=== PATIENT | female | born 1995 | race Hispanic/Latino ===

== ENCOUNTER 2017-08-14 09:25 | Outpatient (CLI) | payer OTHER | END 2017-08-14 09:26 | disposition home or self-care (01) | LOC: BICULT 09:25 | PROVIDERS: ATTEND Nurse Practitioner Women's Health | DX: R10.2 Pelvic and perineal pain (principal); N83.291 Other ovarian cyst, right side | CPT/HCPCS: 76856 ==

== ENCOUNTER 2018-03-21 19:43 | Emergency (ER) | payer OTHER ==
[2018-03-21] MEDS ORDERED: Lidocaine 1% w/Epinephrine 1:100K 20 ML VIAL ONE (20:12)
== END 2018-03-21 21:18 | disposition home or self-care (01) ==
LOC: ERS 19:43
DX: L02.214 Cutaneous abscess of groin (principal); J45.909 Unspecified asthma, uncomplicated; F41.9 Anxiety disorder, unspecified; F32.9 Major depressive disorder, single episode, unspecified; Z79.899 Other long term (current) drug therapy
CPT/HCPCS: 10060; J2001

== ENCOUNTER 2018-09-17 03:53 | Emergency (ER) | payer OTHER ==
[2018-09-17] MEDS ORDERED: Ondansetron PF 4 MG/2 ML Vial ONE (04:17)
[2018-09-17] MEDS ORDERED: Morphine 4 MG/ML VIAL ONE (04:17)
[2018-09-17 04:42] LABS: #Basophils 0.1 thou/uL (0.0-0.2); #Eosinphils 0.1 thou/uL (0.0-0.7); #Lymphocytes 2.8 thou/uL (1.20-3.40); #Monocytes 0.8 thou/uL (0.11-0.59); #Neutrophils 7.7 thou/uL (1.40-6.50); %Basophils 0.7 % (0.0-1.0); %Eosinophils 0.8 % (0.0-10.0); %Lymphocytes 24.7 % (21.0-51.0); %Monocytes 7.1 % (0.0-10.0); %Neutrophils 66.6 % (42.0-75.0); Hemoglobin 14.4 g/dL (12.0-16.0); Mean Corpuscular HGB CONC 34.6 g/dL (32.0-36.0); Mean Corpuscular Volume 89.7 fL (78.0-98.0); Mean Platelet Volume 7.6 fL (7.4-10.4); Platelet Count 335 thou/uL (130-400); RBC Distribution Width 11.1 % (11.5-14.5); Red Blood Cell (RBC) Count 4.64 mill/uL (4.20-5.40); White Blood Cell (WBC) Count 11.5 thou/uL (4.8-10.8)
[2018-09-17 05:02] LABS: Lipase 18 U/L (8-78)
[2018-09-17 05:28] LABS: ALT (SGPT) 22 U/L (8-55); AST (SGOT) 14 U/L (5-34); Alkaline Phosphatase 70 U/L (40-150); Anion Gap 14 mmol/L (10-20); BUN (Urea Nitrogen) 19 mg/dL (7.0-18.7); Bilirubin, Total Less than 0.2 mg/dL (0.2-1.2); Calc. Creatinine Clearance 0 mL/min (70-130); Calcium 9.8 mg/dL (7.8-10.44); Carbon Dioxide 25 mmol/L (22-29); Chloride 104 mmol/L (98-107); Estimated GFR-MDRD Greater than 90; Globulin 3.2 g/dL (2.4-3.5); Glucose 105 mg/dL (70-105); Potassium 3.9 mmol/L (3.5-5.1); Protein, Total 7.2 g/dL (6.0-8.3); Sodium 139 mmol/L (136-145)
[2018-09-17 05:59] LABS: Bilirubin Negative (Negative); Blood, Urine Negative (Negative); Glucose, Urine (Dipstick) Negative (Negative); Leukocyte Negative (Negative); Nitrite Negative (Negative); Protein, Urine (Dipstick) Negative (Neg-Trace); Urobilinogen 0.2 mg/dL (0.2-1.0); pH, Urine 6.5 (5.0-9.0)
[2018-09-17 06:03] LABS: Clarity Clear (Clear); Pregnancy Test - Urine (BHCG) Negative (Negative)
[2018-09-17 06:04] LABS: Pregu Control Background? CLEAR/WHITE (CLR/WHITE); Pregu Control Bar Appear? YES (CONTROL BAR)
--- NOTE | 2018-09-17 07:36 | CT ---
CT OF THE ABDOMEN AND PELVIS WITHOUT IV CONTRAST: INDICATION: Right lower quadrant abdominal pain. COMPARISON: None. FINDINGS: The appendix is normal within the right lower quadrant. No free fluid is evident. There is slight prominence of the right adnexa when compared to the left which is nonspecific. There is an IUD in place. There is a mild amount of retained stool within the colon. No renal or ureteral calculus is evident. No hydrocephalus is noted. Lung bases are clear. The unopacified liver, pancreas, adrenal glands, and spleen appear within normal limits. No acute osseous abnormality is evident. IMPRESSION: 1. No renal or ureteral calculus. 2. Normal appendix. 3. Slightly pronounced size of the right adnexa when compared to the left. Further evaluation with pelvis ultrasound may be helpful. 4. Intrauterine device. 5. Mild amount of retained stool within the colon. POS: [facility]
[2018-09-17] MEDS ORDERED: Ketorolac Tromethamine 30 MG/ML VIAL ONE (08:35)
--- NOTE | 2018-09-17 09:06 | ULT ---
TRANSABDOMINAL AND TRANSVAGINAL PELVIC ULTRASOUND: INDICATION: Right lower quadrant abdominal pain with right adnexal abnormality seen on prior CT dated 09/17/2018. TECHNIQUE: Eso scale, color Doppler, and vascular duplex with spectral analysis was performed of the pelvis via a transabdominal transvaginal approach. FINDINGS: The uterus measures 9.0 x 4.0 x 5.7 cm. Endometrial stripe measures 5 mm. IUD is seen within the en dometrial canal. Moderate bowel gas slightly limits image detail of the ovaries. The right ovary measures 4.2 x 3.4 x 3.3 cm. There is a 3.2 cm hypoechoic lesion within the right adnexa without visible internal flow. There is flow present to the right ovary. The left ovary measures 2.4 x 2.2 x 1.9 cm. There is normal flow to the left ovary. No free fluid is evident. IMPRESSION: 1. Suspected mildly complex cyst within the right adnexa measuring up to 3.2 cm. A followup pelvic ultrasound in 6-8 weeks is recommended to document resolution. 2. Intrauterine device. 3. Normal sonographic appearance of the left ovary. POS: [facility]
== END 2018-09-17 09:00 | disposition home or self-care (01) ==
LOC: ERS 03:53
DX: N83.201 Unspecified ovarian cyst, right side (principal); J45.909 Unspecified asthma, uncomplicated; F41.9 Anxiety disorder, unspecified; F32.9 Major depressive disorder, single episode, unspecified; Z79.51 Long term (current) use of inhaled steroids; Z79.899 Other long term (current) drug therapy
CPT/HCPCS: 74176; 76856; 80053; 81003; 81025; 83690; 85025; 96361; 96374; 96375; J1885; J2270; J2405

== ENCOUNTER 2018-12-04 13:35 | Outpatient (CLI) | payer OTHER ==
--- NOTE | 2018-12-04 14:28 | ULT ---
Exam: ENDOVAGINAL pelvic ultrasound HISTORY:Evaluate for ovarian cyst. COMPARISON: 09/17/2018 TECHNIQUE: Transabdominal and endovaginal imaging of the pelvis is performed. Ovaries are interrogate d with grayscale, color flow, Doppler imaging and spectral wave form analysis FINDINGS: Uterus: No myometrial masses. Uterus measurin.0 x 9.0 x 4.3 cm. cm. Endometrium: Limited evaluation of the echotexture due to intrauterine device. Free fluid: None Left ovary: Normal echotexture. Left ovary measurements: 1.1 x 1.1 x 2.4 cm Right ovary: Normal. Complex echotexture focus in the right ovary measuring 2.0 x 2.1 x 2.6 cm. Previ ously, this complex structure measured 3.1 x 2.4 x 2.4 cm. Right ovary measurement: 3.8 x 2.5 x 2.5 cm Ovarian Doppler: There is vascular flow to the left and right ovary. IMPRESSION: 1. Intrauterine device in the endometrial canal. 2. Enlarging right ovarian cyst with increased complexity. Consider ADMINISTRATIVE ASSISTANT DATA ENTRY consultation. Transcribed Date/Time: 12/04/2018 2:32 PM
== END 2018-12-04 13:36 | disposition home or self-care (01) ==
LOC: BICULT 13:35
PROVIDERS: ATTEND Nurse Practitioner Women's Health
DX: N83.201 Unspecified ovarian cyst, right side (principal); Z97.5 Presence of (intrauterine) contraceptive device
CPT/HCPCS: 76856

== ENCOUNTER 2019-04-29 09:31 | Outpatient (CLI) | payer OTHER ==
--- NOTE | 2019-04-29 11:31 | ULT ---
ULTRASOUND ABDOMEN COMPLETE: INDICATIONS: Nausea and vomiting. COMPARISON: CT exam from 09/17/2018. TECHNIQUE: Seo-scale ultrasound evaluation of the liver, gallbladder, spleen, pancreas, common bile duct, kidne ys, abdominal aorta, and inferior vena cava (IVC). FINDINGS: No focal hepatic lesion. The gallbladder is unremarkable. The common duct measures 2-3 mm, within nor mal limits. No ascites. No evidence of hydronephrosis or either visualized kidney. The spleen is unre markable. The pancreas is partially obscured from view by bowel content, limiting assessment. The jeff ged IVC and portions of the visualized aorta are grossly unremarkable. IMPRESSION: No acute abnormalities. POS: [facility]
== END 2019-04-29 09:32 | disposition home or self-care (01) ==
LOC: ULT 09:31
PROVIDERS: ATTEND Physician Assistant Medical
DX: R10.30 Lower abdominal pain, unspecified (principal); R11.2 Nausea with vomiting, unspecified
CPT/HCPCS: 93975

== ENCOUNTER 2019-07-05 12:39 | Outpatient (CLI) | payer OTHER ==
--- NOTE | 2019-07-05 16:02 | NM ---
NM Hida Scan W Drug History: Nausea and vomiting Comparison: Abdomen ultrasound April 2019 Findings: Abdominal imaging was performed after the intravenous administration 4.8 mCi technetium 99m mebrofenin. To evaluate ejection fraction, 8 ounces ensure were administered by mouth 1 hour after injection of radiopharmaceutical. Adequate hepatic uptake of radiotracer. The gallbladder, common bile duct, and proximal small bowel w ere seen clinically. The calculated ejection fraction is 55%. Impression: Patent cystic and common bile duct with normal gallbladder ejection fraction.
== END 2019-07-05 12:40 | disposition home or self-care (01) ==
LOC: NM 12:39
PROVIDERS: ATTEND Physician Assistant Medical
DX: R11.2 Nausea with vomiting, unspecified (principal); R19.7 Diarrhea, unspecified
CPT/HCPCS: 78227; A9537

== ENCOUNTER 2019-07-09 07:31 | Outpatient (CLI) | payer OTHER ==
--- NOTE | 2019-07-09 12:50 | NM ---
NUCLEAR MEDICINE GASTRIC EMPTYING SCAN WITH MEAL: History: Abdominal pain. Nausea with vomiting. Comparison: None.. Findings: Planar abdominal imaging was performed after the oral administration 2.1 mCi technetium 99m sulfur co lloid in egg. Emptyin hour: 48% 3 hours: 83% 4 hours: 99% Impression: Normal gastric emptying study. Transcribed Date/Time: 07/09/2019 12:52 PM
== END 2019-07-09 07:32 | disposition home or self-care (01) ==
LOC: NM 07:31
PROVIDERS: ATTEND Physician Assistant Medical
DX: R11.2 Nausea with vomiting, unspecified (principal); R19.7 Diarrhea, unspecified
CPT/HCPCS: 78264; A9541

== ENCOUNTER 2019-07-11 18:26 | Emergency (ER) | payer OTHER ==
[2019-07-11] MEDS ORDERED: Acetaminophen 500 MG TAB ONE (20:51)
[2019-07-11] MEDS ORDERED: Dexamethasone 4 MG TAB ONE (20:51)
== END 2019-07-11 22:15 | disposition home or self-care (01) ==
LOC: ERS 18:26
DX: J02.8 Acute pharyngitis due to other specified organisms (principal); J45.909 Unspecified asthma, uncomplicated; F41.9 Anxiety disorder, unspecified; F32.9 Major depressive disorder, single episode, unspecified; Z79.51 Long term (current) use of inhaled steroids; Z79.899 Other long term (current) drug therapy
CPT/HCPCS: 87081; 87430; 99283; J8540

== ENCOUNTER 2019-08-21 14:31 | Outpatient (CLI) | payer OTHER ==
--- NOTE | 2019-08-21 15:35 | CT ---
CT ABDOMEN AND PELVIS WITH IV CONTRAST 08/21/2019 CLINICAL INFORMATION: Abdominal pain with nausea, vomiting, and abdominal bloating for months. COMPARISON: Noncontrast CT abdomen and pelvis on 09/17/2018 Technique: Multiple contiguous axial CT images are obtained through the abdomen and pelvis with IV contrast. Cor onal reformatted images are provided. FINDINGS: Lower Chest: within normal limits. Vessels: Abdominal aorta is normal in caliber without evidence of an aortic dissection. Abdomen: Portal vein:Patent Gallbladder: Within normal limits for CT imaging. Liver: within normal limits. Spleen: within normal limits. Pancreas: within normal limits. Adrenals: within normal limits. Kidneys: within normal limits. Bowel: Normal caliber. Appendix: The appendix is visualized and normal in caliber. Peritoneum: No ascites or free air; no fluid collection. Mesentery and Retroperitoneum: No enlarged mesenteric or retroperitoneal lymph nodes. Abdominal Wall: within normal limits. Pelvis: Reproductive Organs: A T-shaped intrauterine contraceptive device is visualized. A 1.5 cm hypodense l esion with peripherally enhancing margin is seen in the left ovary likely related to involuting cyst/follicle. Pelvis within normal limits. Bladder: Mostly decompressed and not well evaluated. Bones: No suspicious lytic or sclerotic osseous lesions are identified. IMPRESSION: 1. No acute findings in the abdomen or pelvis. 2. T-shaped intrauterine contraceptive device noted in place.
== END 2019-08-21 14:32 | disposition home or self-care (01) ==
LOC: BICCT 14:31
PROVIDERS: ATTEND Physician Assistant Medical
DX: R10.30 Lower abdominal pain, unspecified (principal); R11.2 Nausea with vomiting, unspecified; R19.7 Diarrhea, unspecified; R14.0 Abdominal distension (gaseous)
CPT/HCPCS: 74177

== ENCOUNTER 2020-09-09 09:18 | Emergency (ER) | payer OTHER ==
[2020-09-09 09:50] LABS: #Basophils 0.1 thou/uL (0.0-0.2); #Eosinphils 0.1 thou/uL (0.0-0.7); #Monocytes 0.6 thou/uL (0.11-0.59); #Neutrophils 6.4 thou/uL (1.40-6.50); %Basophils 0.8 % (0.0-1.0); %Eosinophils 0.6 % (0.0-10.0); %Lymphocytes 21.6 % (21.0-51.0); %Monocytes 6.9 % (0.0-10.0); %Neutrophils 70.1 % (42.0-75.0); Hemoglobin 13.6 g/dL (12.0-16.0); Mean Corpuscular HGB CONC 34.9 g/dL (32.0-36.0); Mean Corpuscular Hemoglobin 31.6 pg (27.0-31.0); Mean Corpuscular Volume 90.6 fL (78.0-98.0); Mean Platelet Volume 7.4 fL (7.4-10.4); Platelet Count 325 thou/uL (130-400); RBC Distribution Width 10.9 % (11.5-14.5); White Blood Cell (WBC) Count 9.1 thou/uL (4.8-10.8)
[2020-09-09 10:44] LABS: Bilirubin Negative (Negative); Blood, Urine Negative (Negative); Clarity Clear (Clear); Glucose, Urine (Dipstick) Normal (Negative); Ketone, Urine Trace mg/dL (Negative); Leukocyte Negative Leu/uL (Negative); Nitrite Negative (Negative); Protein, Urine (Dipstick) 10 mg/dL (Neg-Trace); Specific Gravity, Urine 1.028 (1.002-1.036); Urobilinogen Normal mg/dL (Less than 2); pH, Urine 6.5 (5.0-9.0)
[2020-09-09 11:22] LABS: Anion Gap 14 mmol/L (10-20); BUN (Urea Nitrogen) 12 mg/dL (7.0-18.7); Calc. Creatinine Clearance 0 mL/min (70-130); Calcium 8.7 mg/dL (7.8-10.44); Carbon Dioxide 21 mmol/L (22-29); Chloride 102 mmol/L (98-107); Glucose 90 mg/dL (70-105); Potassium 4.1 mmol/L (3.5-5.1); Sodium 133 mmol/L (136-145)
== END 2020-09-09 12:50 | disposition home or self-care (01) ==
LOC: ERS 09:18
DX: O20.0 Threatened abortion (principal); O99.511 Diseases of the respiratory system complicating pregnancy, first trimester; J45.909 Unspecified asthma, uncomplicated; Z3A.01 Less than 8 weeks gestation of pregnancy
CPT/HCPCS: 36415; 76856; 80048; 81003; 84702; 85025; 86900; 86901

== ENCOUNTER 2020-09-24 21:04 | Emergency (ER) | payer OTHER ==
[2020-09-24 21:59] LABS: #Basophils 0.1 thou/uL (0.0-0.2); #Eosinphils 0.1 thou/uL (0.0-0.7); #Lymphocytes 2.5 thou/uL (1.20-3.40); #Monocytes 0.8 thou/uL (0.11-0.59); #Neutrophils 7.5 thou/uL (1.40-6.50); %Basophils 0.6 % (0.0-1.0); %Eosinophils 0.6 % (0.0-10.0); %Lymphocytes 22.9 % (21.0-51.0); %Neutrophils 68.9 % (42.0-75.0); Hemoglobin 12.2 g/dL (12.0-16.0); Mean Corpuscular HGB CONC 34.5 g/dL (32.0-36.0); Mean Corpuscular Hemoglobin 31.5 pg (27.0-31.0); Mean Corpuscular Volume 91.2 fL (78.0-98.0); Mean Platelet Volume 7.4 fL (7.4-10.4); Platelet Count 324 thou/uL (130-400); RBC Distribution Width 11.1 % (11.5-14.5); Red Blood Cell (RBC) Count 3.88 mill/uL (4.20-5.40); White Blood Cell (WBC) Count 10.9 thou/uL (4.8-10.8)
[2020-09-24 23:45] LABS: Bacteria/HPF None Seen HPF (None Seen); Bilirubin Negative (Negative); Blood, Urine 1+ (Negative); Clarity Extra Turbid (Clear); Glucose, Urine (Dipstick) Normal (Negative); Ketone, Urine Negative (Negative); Leukocyte Negative Leu/uL (Negative); Mucous/LPF Rare LPF (<2+); Nitrite Negative (Negative); Protein, Urine (Dipstick) 10 mg/dL (Neg-Trace); RBC/HPF 0-3 HPF (0-3); Specific Gravity, Urine 1.027 (1.002-1.036); WBC/HPF 0-3 HPF (0-3)
== END 2020-09-24 23:47 | disposition home or self-care (01) ==
LOC: ERS 21:04
DX: O20.0 Threatened abortion (principal); Z3A.09 9 weeks gestation of pregnancy
CPT/HCPCS: 36415; 81003; 81015; 84702; 85025; 86900; 86901; 99284

== ENCOUNTER 2023-12-05 12:50 | Outpatient (CLI) | payer OTHER | END 2023-12-05 12:51 | disposition home or self-care (01) | LOC: BICRAD 12:50 | PROVIDERS: ATTEND Physician Assistant | DX: M54.6 Pain in thoracic spine (principal); M54.50 Low back pain, unspecified; G89.29 Other chronic pain | CPT/HCPCS: 72072; 72100 ==